=== PATIENT | female | born 1995 | race Caucasian/White ===

== ENCOUNTER → 2017-10-30 | Outpatient (CLI) | payer MEDICAID ==
[~2017-10-30] MED LIST: ACHD5005 PO; FERR-84 PO; IBUP-844 PO; VALA500T4 PO
--- NOTE | 2017-10-30 13:21 | Diagnostic Imaging Report ---
INDICATION: Assessment for position and weight. Outside care performed. Records not available. TECHNIQUE: Multiple, limited real-time grayscale images were obtained over the gravid uterus. COMPARISON: None FINDINGS: There is presence of a single viable intrauterine currently in cephalic presentation. Amniotic fluid currently within normal limits at 10.7 cm. Placenta along the fundal aspect without previa. cardiac activity at 127 beats per minute. Biometrical measurements are as follows: Biparietal 8.5 cm, age 34 weeks 3 days. Head circumference 31.0 cm, age 34 weeks 5 days. Abdominal circumference 30.1 cm, age 34 weeks 5 days. Femur length 6.7 cm, age 34 weeks 4 days. Sonographic estimate age: 34 weeks 5 days. Sonographic estimated date of delivery: 12/06/17. Estimated Weight: 2457 gm (+/- 359 gm). LMP percentile: 56%. heart rate: 124 beats per minute. number: 1 of 1. anatomical assessment not performed. IMPRESSION: 1. Single viable intrauterine currently in cephalic presentation. Sonographic estimated age 34 weeks 5 days for an estimated date of delivery 12/06/2017. Dictated by: Dictated on workstation # [id number]
== END ==
LOC: RAD 11:57
PROVIDERS: ATTEND Family Medicine
DX: Z34.93 Encounter for supervision of normal pregnancy, unspecified, third trimester (principal); Z3A.34 34 weeks gestation of pregnancy
CPT/HCPCS: 76805

== ENCOUNTER 2017-11-04 03:28 | Inpatient (IN) | payer MEDICAID ==
[2017-11-04] VITALS (19 sets, daily range): BP systolic 91–132; BP diastolic 50–90
[~2017-11-04] VITALS: Ht 142.2 cm; Wt 62.6 kg
[~2017-11-04 03:28] MED LIST changes: -ACHD5005 PO; -FERR-84 PO; -IBUP-844 PO
[2017-11-04] MEDS ORDERED: D5 LR IV SOLUTION 1,000 ML IV SCH ×2 (04:43→12:48)
[2017-11-04] MEDS ORDERED: BUTORPHANOL INJ 2 MG/ML (STADOL) VIAL IV PRN (04:45)
[2017-11-04] MEDS ORDERED: MINERAL OIL CONCENTRATE 99.9% 15 ML UDC TOP PRN (04:45)
[2017-11-04] MEDS ORDERED: ONDANSETRON 4 MG/2 ML (SDV) Z0FRAN IVP PRN (04:45)
[2017-11-04 04:49] LABS: BASOPHILS % (AUTO) 0 % (0-10); EOSINOPHILS # (AUTO) 0.1 10^3/uL (0.0-0.3); EOSINOPHILS % (AUTO) 1 % (0-10); HEMATOCRIT 33 % (35-52); HEMOGLOBIN 10.8 G/DL (11.5-16.0); LYMPHOCYTES # (AUTO) 2.2 X 10^3 (1.0-4.0); LYMPHOCYTES % (AUTO) 24 % (12-44); MEAN CORPUSCULAR HEMOGLOBIN 29 PG (25-34); MEAN CORPUSCULAR HGB CONC 33 G/DL (32-36); MEAN CORPUSCULAR VOLUME 88 FL (80-99); MONOCYTES % (AUTO) 11 % (0-12); NEUTROPHILS % (AUTO) 64 % (42-75); PLATELET COUNT 381 10^3/uL (130-400); RED BLOOD COUNT 3.69 10^6/uL (4.35-5.85); RED CELL DISTRIBUTION WIDTH 13.1 % (10.0-14.5); WHITE BLOOD COUNT 9.3 10^3/uL (4.3-11.0)
--- OUTSIDE RECORDS SUMMARY | 2017-11-04 05:43 | XMS REPORT | Continuity of Care Document ---
Author Author [facility] Organization [facility] Address [facility] [address] [place] [address] Phone Unavailable Support Name Relationship Address Phone MONICA BAUTISTA DO Caregiver [address] [place], [place] [address] CARSONJENNIFER Next Of Kin [address] [place], [place] [address] Insurance Providers Payer Name Policy Number Subscriber Name Relationship Self Pay Insurance Esteban Carson 18 Self / Same As Patient Advance Directives Directive Response Recorded Date/Time Advance Directives No 05/23/16 6:38pm Living Will No 05/23/16 6:38pm Health Care Proxy No 08/26/16 1:42pm Power of Informatic[employer] Developer for Health Care No 05/23/16 6:38pm Organ, Tissue, or Eye Donor No 05/23/16 6:38pm Do you have a signed organ donor card? No 05/23/16 6:38pm Chief Complaint and Reason for Visit Chief Complaint LEG PAIN Reason for Visit [id number] Problems Active Problems Medical Problem Onset Date Status Leg pain, left Unknown Acute Urticaria Unknown Acute Medications Current Home Medications Medication Dose Units Route Directions Days/Qty Instructions Start Date Prednisone 10 Mg 10 Mg Oral Twice A Day 4 05/23/16 Famotidine 40 Mg 40 Mg Oral Daily 5 05/23/16 Social History Social History Problem Response Recorded Date/Time Smoking Status Never smoker 05/23/2016 7:24pm Query Response Start Date Stop Date Smoking Status Never smoker Hospital Discharge Instructions No hospital discharge instructions. Plan of Care Discharge Date 08/26/16 4:32pm Condition at Discharge Stable Instructions/Education Provided Muscle Strain (ED) Prescriptions See Medication Section Referrals SUSAN ANGUIANO - Functional Status Query Response Date Recorded [place] Coma Scale Total 15 August 26, 2016 1:41pm Patient Behavior Restless Cooperative August 26, 2016 1:41pm Allergies, Adverse Reactions, Alerts No known allergies. Immunizations Name Given Type Hx Diphtheria, Pertussis, Tetanus Vaccination Up To Date Historical Hx Influenza Vaccination No Historical Hx Pneumococcal Vaccination No Historical Hx Tetanus, Diphtheria Vaccination Yes Historical Hx Tetanus Toxoid Vaccination Y within 10 years Historical Vital Signs Acute Vital Signs Vital Response Date/Time Temperature (Fahrenheit) 98.7 degrees F (97.6 - 99.5) 08/26/2016 1:41pm Temperature Source Temporal Artery 08/26/2016 1:41pm Pulse Rate (adult) 84 bpm (60 - 90) 08/26/2016 4:00pm Respiratory Rate 20 bpm (12 - 24) 08/26/2016 4:00pm Blood Pressure 98/65 mm Hg 08/26/2016 4:00pm O2 Sat by Pulse Oximetry 95 % (90 - 100) 08/26/2016 4:00pm Oxygen Delivery Method 08/26/2016 4:00pm Pain Location Body Site Modifier 08/26/2016 3:03pm Pain Description 08/26/2016 3:03pm Height 4 ft 8 in Weight 123 lb Body Mass Index 27.0 kg/m^2 Results Laboratory Results Test Name Result Units Flags Reference Collection Date/Time Result Date/ Time Comments Urine Color YELLOW YELLOW 08/26/2016 3:04pm 08/26/2016 3:45pm Urine Appearance CLEAR CLEAR 08/26/2016 3:04pm 08/26/2016 3:45pm Urine Glucose (UA) NEGATIVE mg/dL NEGATIVE 08/26/2016 3:04pm 2016 3:45pm Urine Bilirubin NEGATIVE NEGATIVE 08/26/2016 3:04pm 08/26/2016 3: 45pm Urine Ketones 1+ (15 mg/dl) mg/dL H NEGATIVE 08/26/2016 3:04pm 2016 3:45pm Urine Specific [place] >=1.030 H 1.010-1.025 08/26/2016 3:04pm 2016 3:45pm Urine Occult Blood NEGATIVE NEGATIVE 08/26/2016 3:04pm 08/26/2016 3: 45pm Urine pH 5.5 5.0-8.0 08/26/2016 3:04pm 08/26/2016 3:45pm Urine Protein NEGATIVE mg/dL NEGATIVE 08/26/2016 3:04pm 08/26/2016 3: 45pm Urine Urobilinogen 0.2 mg/dL E.U./dL 0.2-1.0 08/26/2016 3:04pm 2016 3:45pm Urine Nitrate NEGATIVE NEGATIVE 08/26/2016 3:04pm 08/26/2016 3:45pm Urine Leukocyte Esterase NEGATIVE NEGATIVE 08/26/2016 3:04pm 2016 3:45pm Urine RBC NEGATIVE /hpf 0 08/26/2016 3:04pm 08/26/2016 3:48pm Urine WBC NEGATIVE /hpf 0-4 08/26/2016 3:04pm 08/26/2016 3:48pm Urine Squamous Epithelial Cells 5-10 /hpf H 0-1 08/26/2016 3:04pm 2016 3:48pm Urine Bacteria TRACE H NEGATIVE 08/26/2016 3:04pm 08/26/2016 3:48pm Urine Mucus FEW H NEGATIVE 08/26/2016 3:04pm 08/26/2016 3:48pm Urine HCG, Qualitative NEGATIVE NEG 08/26/2016 3:04pm 08/26/2016 3: 45pm Procedures No known history of procedures. Encounters Encounter Location Arrival/Admit Date Discharge/Depart Date Attending Provider Departed [facility] 08/26/16 1:41pm 08/26/16 4:32pm MONICA BAUTISTA DO Recent Diagnosis
--- OUTSIDE RECORDS SUMMARY | 2017-11-04 05:43 | XMS REPORT ---
Author Author JACQUELINE HAND Organization [facility] Address [address] [address] Care Team Providers Care Rand Butter Name Role Phone JACQUELINE HAND Unavailable PROBLEMS Type Condition ICD9-CM Code QPP17-GD Code Onset Dates Condition Status SNOMED Code Problem Fever, unspecified fever cause R50.9 Active [id number] ALLERGIES Substance Reaction Event Type Date Status N.K.D.A. Unknown Non Drug Allergy Jul, Unknown SOCIAL HISTORY No smoking Hx information available PLAN OF CARE Activity Details Follow Up prn Reason: VITAL SIGNS Height 58.5 in 2016-08-12 Weight 123.7 lbs 2016-08-12 Temperature 97.9 degrees Fahrenheit 2016-08-12 Heart Rate 85 bpm 2016-08-12 Respiratory Rate 14 2016-08-12 BMI 25.41 kg/m2 2016-08-12 Blood pressure systolic 110 mmHg 2016-08-12 Blood pressure diastolic 70 mmHg 2016-08-12 MEDICATIONS Medication Instructions Dosage Frequency Start Date End Date Duration Status 1 30-0.975-200 MG as directed Jun, Active Amoxicillin 500 MG Orally every 12 hrs 1 capsule 12h Jul, Aug, 10 day(s) Active RESULTS Name Result Date Reference Range INFLUENZA A & B (IN HOUSE) 2016-08-12 INFLUENZA A Neg INFLUENZA B Neg Control positive Lot # [id number] Exp date 12/05/2018 PROCEDURES Procedure Date Ordered Related Diagnosis Body Site INFLUENZA ASSAY W/OPTIC Aug 12, 2016 Office Visit, Est Pt., Level 3 Aug 12, 2016 IMMUNIZATIONS No Known Immunizations
--- OUTSIDE RECORDS SUMMARY | 2017-11-04 05:43 | XMS REPORT ---
Author Author REYNA MCCARTNEY [facility] Address [address] [address] Care Team Providers Care Channel Opener Name Role Phone REYNA MCCARTNEY Unavailable PROBLEMS Type Condition ICD9-CM Code [id number] Code Onset Dates Condition Status SNOMED Code Problem Fever, unspecified fever cause R50.9 Active [id number] ALLERGIES Unknown Allergies SOCIAL HISTORY No smoking Hx information available PLAN OF CARE VITAL SIGNS MEDICATIONS Unknown Medications RESULTS No Results PROCEDURES No Known procedures IMMUNIZATIONS No Known Immunizations
--- OUTSIDE RECORDS SUMMARY | 2017-11-04 05:43 | XMS REPORT ---
Author Author REYNA MCCARTNEY Organization [facility] Address [address] [address] Care Team Providers Care Iso Coordinator Name Role Phone REYNA MCCARTNEY Unavailable PROBLEMS Type Condition ICD9-CM Code [id number] Code Onset Dates Condition Status SNOMED Code Problem Fever, unspecified fever cause R50.9 Active [id number] ALLERGIES Substance Reaction Event Type Date Status N.K.D.A. Unknown Non Drug Allergy Jun, Unknown SOCIAL HISTORY No smoking Hx information available PLAN OF CARE Activity Details Follow Up prn Reason: VITAL SIGNS Height 58.5 in 2016-06-26 Weight 130.6 lbs 2016-06-26 Temperature 102.4 degrees Fahrenheit 2016-06-26 Heart Rate 84 bpm 2016-06-26 Respiratory Rate 16 2016-06-26 BMI 26.83 kg/m2 2016-06-26 Blood pressure systolic 120 mmHg 2016-06-26 Blood pressure diastolic 74 mmHg 2016-06-26 MEDICATIONS Medication Instructions Dosage Frequency Start Date End Date Duration Status 1 30-0.975-200 MG as directed Jun, Active Saline Nasal [place] 0.65 % as directed Jun, Active Augmentin 875-125 MG Orally every 12 hrs 1 tablet 12h Jun,Jun 10 day(s) Active RESULTS Name Result Date Reference Range INFLUENZA A & B (IN HOUSE) 2016-06-26 INFLUENZA A neg INFLUENZA B neg Control + Lot # [id number] Exp date 12/05/18 STREP A (IN HOUSE) 2016-06-26 STREP A neg Control + Lot # [id number] Exp date 06/20/17 PROCEDURES Procedure Date Ordered Related Diagnosis Body Site STREP A ASSAY W/OPTIC Jun 26, 2016 INFLUENZA ASSAY W/OPTIC Jun 26, 2016 Office Visit, New Pt., Level 3 Jun 26, 2016 IMMUNIZATIONS No Known Immunizations
--- OUTSIDE RECORDS SUMMARY | 2017-11-04 05:43 | XMS REPORT ---
Author Author JACQUELINE HAND Organization [facility] Address [address] [address] Care Team Providers Care Tanbark Laborer Name Role Phone JACQUELINE HAND Unavailable PROBLEMS Type Condition ICD9-CM Code CTU19-QH Code Onset Dates Condition Status SNOMED Code Problem Fever, unspecified fever cause R50.9 Active [id number] ALLERGIES No Information SOCIAL HISTORY Never Assessed PLAN OF CARE VITAL SIGNS MEDICATIONS Medication Instructions Dosage Frequency Start Date End Date Duration Status Azithromycin 250 MG Orally Once a day 2 tablets on the first day, then 1 tablet daily for days 2-5 24h Sep, Sep, 0 days Active RESULTS No Results PROCEDURES No Known procedures IMMUNIZATIONS No Known Immunizations MEDICAL (GENERAL) HISTORY Type Description Date Hospitalization History urinary tract infection
[2017-11-04] MEDS ORDERED: CATHETER FLUSH 10 ML SYR IV SCH (06:00)
[2017-11-04] MEDS: LACTATED RINGERS 1,000 ML IV SCH ×2 (08:20→11:55)
[2017-11-04] MEDS ORDERED: SUFENTA 0.6MCG/ML BUPIVA 0.125 100 ML ONE (08:26)
[2017-11-04 09:11] LABS: AMPHETAMINE SCREEN, URINE NEGATIVE (NEGATIVE); BARBITURATE SCREEN URINE NEGATIVE (NEGATIVE); BENZODIAZEPINES SCREEN URINE NEGATIVE (NEGATIVE); CANNABINOID SCREEN, URINE POSITIVE (NEGATIVE); COCAINE SCREEN URINE NEGATIVE (NEGATIVE); METHADONE STAT NEGATIVE (NEGATIVE); METHAMPHETAMINE SCREEN URINE S NEGATIVE (NEGATIVE); OPIATE SCREEN URINE NEGATIVE (NEGATIVE); OXYCODONE STAT NEGATIVE (NEGATIVE); PROPOXYPHENE STAT NEGATIVE (NEGATIVE); TRICYCLIC ANTIDEPRESSANTS SCRE NEGATIVE (NEGATIVE)
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
[2017-11-04] MEDS ORDERED: METOCLOPRAMIDE INJ 10 MG/2 ML (REGLAN) IV PRN (10:00)
[2017-11-04] MEDS ORDERED: ONDANSETRON 4 MG/2 ML (SDV) Z0FRAN IV PRN (10:00)
[2017-11-04] MEDS ORDERED: diphenhydrAMINE 50 MG/ML INJ (BENADRYL) IV PRN (10:00)
[2017-11-04] MEDS ORDERED: EPIDURAL (SUFENTA 0.6MCG/ML BUPIVA 0.125%) 100 ML BAG EPI SCH (10:00)
[2017-11-04] MEDS ORDERED: NALOXONE 0.4 MG/ML 1 ML (NARCAN) VIAL IV PRN ×2 (10:00)
[2017-11-04] MEDS ORDERED: raNItidine 50 MG/2 ML INJ (ZANTAC) ONE (11:49)
[2017-11-04] MEDS ORDERED: ceFAZolin 2 GM IV Premixed 50 ML ONE (11:49)
[2017-11-04] MEDS ORDERED: CITRIC ACID/SOB CIT (BICITRA) 30 ML UDC ONE (11:49)
[2017-11-04] MEDS ORDERED: AZITHROMYCIN 500 MG (ZITHROMAX) VIAL ONE (11:52)
[2017-11-04] MEDS ORDERED: NS (IVPB) 0 ML ONE (11:52)
[2017-11-04] MEDS ORDERED: ceFAZolin 1,000 MG (ANCEF) VIAL ONE (11:52)
[2017-11-04] MEDS ORDERED: NS (IVPB) 100 ML ONE (11:53)
[2017-11-04] MEDS ORDERED: NS (IVPB) 250 ML ONE (11:55)
[2017-11-04] MEDS ORDERED: LIDOCAINE PF 2% 5 ML (XYLOCAINE) VIAL ONE (11:56)
[2017-11-04] MEDS ORDERED: KETAMINE HCL 100 MG/ML 5 ML VIAL ONE (11:57)
[2017-11-04] MEDS ORDERED: BUPIVACAINE 0.25% 30 ML (SENSORCAINE) VIAL ONE (11:59)
[2017-11-04] MEDS ORDERED: BUPIVACAINE 0.5% 30 ML (SENSORCAINE) VIAL ONE (11:59)
[2017-11-04] MEDS ORDERED: AZITHROMYCIN INJECTION 500 MG in NS (IVPB) 250 ML IV NR (12:00)
[2017-11-04] MEDS ORDERED: ceFAZolin INJECTION 1,000 MG in NS (IVPB) 100 ML IV NR (12:00)
[2017-11-04] MEDS ORDERED: fentaNYL INJECTION 100 MCG/2 ML AMP ONE (12:05)
[2017-11-04] MEDS ORDERED: ONDANSETRON 4 MG/2 ML (SDV) Z0FRAN ONE (12:24)
[2017-11-04] MEDS ORDERED: OXYTOCIN/NORMAL SALINE 500 ML IV SCH (12:48)
--- NOTE | 2017-11-04 12:55 | Cesarean Section Operative ---
Procedure Procedure Note Pre-operative Diagnosis: Unique Wallace is a 22 /Para 5 / 0,Gestational Age 37 5/7 weeks with intolerance to labor, decelerations Post-operative Diagnosis: same Procedure: Primary low transverse section Physician: JOHN SAINI Rv Servicer: Elke Bob Estimated blood loss: 500 mL Disposition: mother in RR and baby in NBN Findings: Viable female infant, Apgars 7/9, weight 5#7oz, intact placenta, 3vc, normal appearing uterus, tubes, and ovaries. Indications:Unique Wallace is a 22 /Para 5 / 0,Gestational Age 37 5/7 weeks with intolerance to labor, decelerations I was asked to consult by Dr. Elke Bob, due to decelerations. This is a 22 year old at 37 5/7 weeks with limited care in [place]. She had moved here to be with FOBs family and had [address] [place]. Had ROM and arrived here at 0300. Was in spontaneous labor and approximately 4 cm dilated, but having deep variable late decelerations. The strip had improved, but Dr. Bob had asked me to consult due to decelerations. They had resolved but while I was in the room had a variable to 60 for over 2 minutes with slow recovery, so she was taken to the operating room for operative delivery. Procedure Details: The patient was seen in pre-op and the procedure was discussed with the patient in full, including the risks, benefits, and alternatives. All questions were answered. The patient was taken to the operating room and a time out was performed, verifying patient and procedure. After spinal anesthesia was placed by our anesthesia colleagues, the patient was placed in the dorsal supine with leftward tilt for uterine displacement.~ Her abdomen was then prepped and draped in the typical sterile fashion. A Pfannenstiel skin incision was made using a scalpel and carried down through the underlying fascia. The fascia was incised in the midline and tented up using Natacha clamps. On both the inferior and superior fascia side the rectus muscle was dissected off bluntly and sharply using Davies scissors. The peritoneum was identified and entered bluntly in the midline. This was then stretched laterally using manual strength. After entering the abdominal cavity and confirming lack of intraperitoneal adhesions, a large Clark retractor was placed and the lower uterine segment was visualized. A scalpel was utilized to make a low transverse uterine incision. The infant's head was grasped and brought to the level of the incision. It was in the OP presentation, wedge in the pelvis with a caput. There was a nuchal cord that was delivered through. Fundal pressure was applied and was delivered without difficulty. Mouth and nares were suctioned with bulb suction. After the umbilical cord was clamped and cut, the was handed off to the pediatric staff. A sample of cord blood was then obtained. Cord gases were sent. pH 7.24. The placenta was delivered intact via uterine massage. The uterus was cleared of all clots and debris. The uterine incision was closed using 0 Vicryl in a running locked fashion. A second imbricated layer was placed using 0 Vicryl in a running fashion as well. The bilateral tubes and ovaries appeared normal. The abdominal gutters were cleared of all clots and debris. A final check of the uterine incision showed it to be hemostatic. Intercede was placed. The peritoneum was closed using 3-0 Vicryl in a running fashion. The fascia was closed with 0 Vicryl in a running fashion. The subcutaneous space was hemostatic , and irrigated. The subcutaneous space was closed with 3-0 Vicryl in several single interrupted stitches. The skin was then closed using 4-0 Monocryl in a running subcuticular fashion. The skin edges were reapproximated together and were hemostatic. A pressure dressing was applied. All sponge, lap and needle counts were correct at the end of the procedure per nursing. Vitals - Labs Vital Signs - I&O Vital Signs Date Time Temp Pulse Resp B/P (MAP) Pulse Ox O2 Delivery O2 Flow Rate FiO2 11/04/17 10:10 66 20 94/53 (67) 100 Non Rebreather 15.00 11/04/17 09:55 59 20 94/59 (71) 100 Non Rebreather 15.00 11/04/17 09:50 66 20 91/52 (65) 100 Non Rebreather 15.00 11/04/17 09:45 62 20 109/60 (76) 100 Non Rebreather 15.00 11/04/17 09:40 69 20 132/72 (92) 100 Non Rebreather 15.00 11/04/17 09:35 70 20 118/78 (91) 100 Non Rebreather 15.00 11/04/17 09:30 69 20 119/67 (84) 99 Non Rebreather 15.00 11/04/17 03:44 98.5 75 18 107/62 (77) Labs Laboratory Tests 11/04/17 04:20: White Blood Count 9.3, Red Blood Count 3.69L, Hemoglobin 10.8L, Hematocrit 33L, Mean Corpuscular Volume 88, Mean Corpuscular Hemoglobin 29, Mean Corpuscular Hemoglobin Concent 33, Red Cell Distribution Width 13.1, Platelet Count 381, Mean Platelet Volume 10.0, Neutrophils (%) (Auto) 64, Lymphocytes (%) (Auto) 24 , Monocytes (%) (Auto) 11, Eosinophils (%) (Auto) 1, Basophils (%) (Auto) 0, Neutrophils # (Auto) 6.0, Lymphocytes # (Auto) 2.2, Monocytes # (Auto) 1.0, Eosinophils # (Auto) 0.1, Basophils # (Auto) 0.0 11/04/17 08:45: Urine Opiates Screen NEGATIVE, Urine Oxycodone Screen NEGATIVE, Urine Methadone Screen NEGATIVE, Urine Propoxyphene Screen NEGATIVE, Urine Barbiturates Screen NEGATIVE, Ur Tricyclic Antidepressants Screen NEGATIVE, Urine Phencyclidine Screen NEGATIVE, Urine Amphetamines Screen NEGATIVE, Urine Methamphetamines Screen NEGATIVE, Urine Benzodiazepines Screen NEGATIVE, Urine Cocaine Screen NEGATIVE, Urine Cannabinoids Screen POSITIVEJOHN BECKWITH DO Nov 04, 2017 12:55
[2017-11-04] MEDS ORDERED: TETANUS,DIPTH,PERTUSS P/F (BOOSTRIX) 0.5 ML VIAL IM SCH (13:00)
[2017-11-04] MEDS ORDERED: HYDROmorphone 2 MG/ML VIAL (DILAUDID) IVP PRN (13:00)
[2017-11-04] MEDS ORDERED: MEASLES,MUMPS,RUBELLA 1 EA INJ SC SCH (13:00)
[2017-11-04] MEDS ORDERED: ACHD5005 PO (13:15)
[2017-11-04] MEDS ORDERED: IBUP-844 PO (13:15)
[2017-11-04] MEDS ORDERED: LACTATED RINGERS 1,000 ML IV PRN ×2 (14:24)
[2017-11-04] MEDS ORDERED: FAMOTIDINE 20MG/2ML IV (PEPCID) IV ONE (14:30)
[2017-11-04] MEDS ORDERED: CATHETER FLUSH 10 ML SYR IV PRN (14:30)
[2017-11-04] MEDS ORDERED: CITRIC ACID/SOB CIT (BICITRA) 30 ML UDC PO ONE (14:30)
[2017-11-04] MEDS ORDERED: raNItidine 50 MG/2 ML INJ (ZANTAC) IV ONE (14:30)
[2017-11-04] MEDS ORDERED: METOCLOPRAMIDE INJ 10 MG/2 ML (REGLAN) IV ONE (14:30)
[2017-11-04] MEDS: CATHETER FLUSH 10 ML SYR IV SCH (14:41)
[2017-11-04] MEDS ORDERED: diphenhydrAMINE 50 MG/ML INJ (BENADRYL) IVP NR (14:45)
[2017-11-04] MEDS: KETOROLAC 30 MG/ML VIAL IVP SCH ×2 (15:42→22:00)
[2017-11-04] MEDS: HYDROcodone/APAP 5 MG/325 MG (LORTAB) TAB PO PRN (20:18)
[2017-11-04] MEDS: DOCUSATE SODIUM 100 MG (COLACE) CAP PO SCH (20:55)
--- NOTE | 2017-11-04 21:28 | Labor Progress Note ---
Labor Progress Note Labor Progress Note Date Seen by Provider: Nov 04, 2017 Time Seen by Provider: 12:00 Subjective: Pt comfortable with epidural. Objective: SVE 4-5/100/-1, OP heart tones: severe variable decelerations in FHR as low as 50 bpm with slow return to baseline; no palpable cord, minimal change with elevation of presenting part Tocometer: irregular and mild Assessment/Plan: Discussed with patient that fetus is not tolerating contractions, and given that she is remote from delivery with decelerations becoming more severe and prolonged, recommend surgical delivery. Risks and benefits reviewed, including but not limited to pain, infection, blood loss, damage to other internal structures. Patient is agreeable to delivery by primary section. Dr. Anguiano called, report on pt and FHR given, is currently en route to facility with ETA <5 minutes. 1 gram Ancef, 500 mg Zithromax, prep patient for OR and consent for surgery. Vitals - Labs Vital Signs - I&O Vital Signs Date Time Temp Pulse Resp B/P (MAP) Pulse Ox O2 Delivery O2 Flow Rate FiO2 11/04/17 18:07 97.7 59 20 123/84 (97) 100 Room Air 11/04/17 15:40 98.1 68 20 130/90 (103) 100 11/04/17 14:30 97.8 66 20 116/61 (79) 100 Room Air 11/04/17 14:14 Room Air 11/04/17 12:00 64 20 108/68 (81) 100 Non Rebreather 15.00 11/04/17 11:45 65 20 110/57 (74) 100 Non Rebreather 15.00 11/04/17 11:30 63 20 117/65 (82) 100 Non Rebreather 15.00 11/04/17 11:15 55 20 92/50 (64) 99 Non Rebreather 15.00 11/04/17 11:00 58 20 96/51 (66) 100 Non Rebreather 15.00 11/04/17 10:45 59 20 96/55 (69) 95 Non Rebreather 15.00 11/04/17 10:30 97.7 65 20 92/51 (65) 97 Non Rebreather 15.00 11/04/17 10:10 66 20 94/53 (67) 100 Non Rebreather 15.00 11/04/17 09:55 59 20 94/59 (71) 100 Non Rebreather 15.00 11/04/17 09:50 66 20 91/52 (65) 100 Non Rebreather 15.00 11/04/17 09:45 62 20 109/60 (76) 100 Non Rebreather 15.00 11/04/17 09:40 69 20 132/72 (92) 100 Non Rebreather 15.00 11/04/17 09:35 70 20 118/78 (91) 100 Non Rebreather 15.00 11/04/17 09:30 69 20 119/67 (84) 99 Non Rebreather 15.00 11/04/17 03:44 98.5 75 18 107/62 (77) Labs Laboratory Tests 11/04/17 04:20: White Blood Count 9.3, Red Blood Count 3.69L, Hemoglobin 10.8L, Hematocrit 33L, Mean Corpuscular Volume 88, Mean Corpuscular Hemoglobin 29, Mean Corpuscular Hemoglobin Concent 33, Red Cell Distribution Width 13.1, Platelet Count 381, Mean Platelet Volume 10.0, Neutrophils (%) (Auto) 64, Lymphocytes (%) (Auto) 24 , Monocytes (%) (Auto) 11, Eosinophils (%) (Auto) 1, Basophils (%) (Auto) 0, Neutrophils # (Auto) 6.0, Lymphocytes # (Auto) 2.2, Monocytes # (Auto) 1.0, Eosinophils # (Auto) 0.1, Basophils # (Auto) 0.0 11/04/17 08:45: Urine Opiates Screen NEGATIVE, Urine Oxycodone Screen NEGATIVE, Urine Methadone Screen NEGATIVE, Urine Propoxyphene Screen NEGATIVE, Urine Barbiturates Screen NEGATIVE, Ur Tricyclic Antidepressants Screen NEGATIVE, Urine Phencyclidine Screen NEGATIVE, Urine Amphetamines Screen NEGATIVE, Urine Methamphetamines Screen NEGATIVE, Urine Benzodiazepines Screen NEGATIVE, Urine Cocaine Screen NEGATIVE, Urine Cannabinoids Screen POSITIVETANGELA DUNHAM DO Nov 04, 2017 21:28
[2017-11-05 02:10] VITALS: BP 120/75
[2017-11-05] MEDS: KETOROLAC 30 MG/ML VIAL IVP SCH ×2 (04:39→09:27)
[2017-11-05] MEDS: HYDROcodone/APAP 5 MG/325 MG (LORTAB) TAB PO PRN ×3 (04:39→16:57)
[2017-11-05] MEDS: CATHETER FLUSH 10 ML SYR IV SCH ×2 (04:39→09:28)
[2017-11-05 05:36] LABS: BASOPHILS % (AUTO) 0 % (0-10); EOSINOPHILS # (AUTO) 0.1 10^3/uL (0.0-0.3); EOSINOPHILS % (AUTO) 1 % (0-10); HEMATOCRIT 29 % (35-52); HEMOGLOBIN 9.4 G/DL (11.5-16.0); LYMPHOCYTES # (AUTO) 2.2 X 10^3 (1.0-4.0); LYMPHOCYTES % (AUTO) 24 % (12-44); MEAN CORPUSCULAR HEMOGLOBIN 29 PG (25-34); MEAN CORPUSCULAR HGB CONC 33 G/DL (32-36); MEAN CORPUSCULAR VOLUME 89 FL (80-99); MEAN PLATELET VOLUME 9.9 FL (7.4-10.4); MONOCYTES # (AUTO) 0.9 X 10^3 (0.0-1.0); MONOCYTES % (AUTO) 10 % (0-12); NEUTROPHILS # (AUTO) 5.7 X 10^3 (1.8-7.8); NEUTROPHILS % (AUTO) 64 % (42-75); PLATELET COUNT 328 10^3/uL (130-400); RED BLOOD COUNT 3.25 10^6/uL (4.35-5.85); RED CELL DISTRIBUTION WIDTH 12.9 % (10.0-14.5); WHITE BLOOD COUNT 8.9 10^3/uL (4.3-11.0)
[2017-11-05 05:47] VITALS: BP 98/64
--- NOTE | 2017-11-05 08:21 | Anesthesia-Regional Post-Op ---
Regional Patient Condition Mental Status: Alert, Oriented x3 Circulation: Same as Pre-Op Headache: Absent Sensation: Full Recovery Motor Block: Absent Post Op Complications Complications None Follow Up Care/Instructions Patient Instructions None needed. Anesthesia/Patient Condition Patient is doing well, no complaints, stable vital signs, no apparent adverse anesthesia problems. No complications reported per nursing. D/C home per [facility] Criteria: Yes MICKI MALIK CRNA Nov 05, 2017 08:21
[2017-11-05 09:00] VITALS: BP 105/68
[2017-11-05] MEDS: DOCUSATE SODIUM 100 MG (COLACE) CAP PO SCH ×2 (09:29→20:52)
[2017-11-05 12:45] VITALS: BP 104/64
--- NOTE | 2017-11-05 12:46 | Postpartum Progress Note ---
Post Op Post-operative Day #1 S/P pltcs INTOLERANCE. Some questions of guardianship. 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 Appreciate input. Subjective: Patient is without complaints. Ambulating, voiding after bland removed. Tolerating a regular diet without nausea or vomiting. Normal lochia. Pain is well controlled with oral pain medications. Passing flatus. States she had one episode of emesis due to hydrocodone though emesis was 3 hours after hydrocodone. Will continue pain medications as ordered and given zofran. If continues with stomach upset then may consider changing to oxycodone. However, pain is controlled with meds as ordered. Objective: Laboratory Tests Test 11/05/17 05:05 Range/Units White Blood Count 8.9 4.3-11.0 10^3/uL Red Blood Count 3.25 L 4.35-5.85 10^6/uL Hemoglobin 9.4 L 11.5-16.0 G/DL Hematocrit 29 L 35-52 % Mean Corpuscular Volume 89 80-99 FL Mean Corpuscular Hemoglobin 29 25-34 PG Mean Corpuscular Hemoglobin Concent 33 32-36 G/DL Red Cell Distribution Width 12.9 10.0-14.5 % Platelet Count 328 130-400 10^3/uL Mean Platelet Volume 9.9 7.4-10.4 FL Neutrophils (%) (Auto) 64 42-75 % Lymphocytes (%) (Auto) 24 12-44 % Monocytes (%) (Auto) 10 0-12 % Eosinophils (%) (Auto) 1 0-10 % Basophils (%) (Auto) 0 0-10 % Neutrophils # (Auto) 5.7 1.8-7.8 X 10^3 Lymphocytes # (Auto) 2.2 1.0-4.0 X 10^3 Monocytes # (Auto) 0.9 0.0-1.0 X 10^3 Eosinophils # (Auto) 0.1 0.0-0.3 10^3/uL Basophils # (Auto) 0.0 0.0-0.1 10^3/uL 11/05/17 11/05/17 11/05/17 02:10 05:47 09:00 Temp 98.2 97.8 98.8 Pulse 61 67 71 Resp 18 14 18 B/P (MAP) 120/75 (90) 98/64 (75) 105/68 (80) Pulse Ox 98 96 97 O2 Delivery Room Air Room Air Room Air 11/05/17 00:00 Intake Total 2530 ml Output Total 1800 ml Balance 730 ml Physical Exam: General - Alert and oriented, no apparent distress Abdomen - Soft, appropriately tender to palpation, non-distended, fundus firm at umbilicus Incision - clean, dry and intact; no erythema or induration, no drainage Extremities - no edema, negative Adeline's bilaterally Assessment: 1. post-operative day # 1, status post PLTCS. Recovering well, hemodynamically stable 2. Acute blood loss anemia Plan: Routine post-operative care. Encourage breast feeding. Encourage ambulation. VTE prophylaxis: SCDs. Ferrous sulfate supplementation. See above regarding pain medication Plan for discharge Friday Vitals - Labs Vital Signs - I&O Vital Signs Date Time Temp Pulse Resp B/P (MAP) Pulse Ox O2 Delivery O2 Flow Rate FiO2 11/05/17 09:00 98.8 71 18 105/68 (80) 97 Room Air 11/05/17 05:47 97.8 67 14 98/64 (75) 96 Room Air 11/05/17 02:10 98.2 61 18 120/75 (90) 98 Room Air 11/04/17 22:10 98.7 68 16 104/62 (76) 97 Room Air 11/04/17 18:07 97.7 59 20 123/84 (97) 100 Room Air 11/04/17 15:40 98.1 68 20 130/90 (103) 100 11/04/17 14:30 97.8 66 20 116/61 (79) 100 Room Air 11/04/17 14:14 Room Air I & O 11/05/17 07:00 Intake Total 4530 ml Output Total 1800 ml Balance 2730 ml Labs Laboratory Tests 11/05/17 05:05: White Blood Count 8.9, Red Blood Count 3.25L, Hemoglobin 9.4L, Hematocrit 29L, Mean Corpuscular Volume 89, Mean Corpuscular Hemoglobin 29, Mean Corpuscular Hemoglobin Concent 33, Red Cell Distribution Width 12.9, Platelet Count 328, Mean Platelet Volume 9.9, Neutrophils (%) (Auto) 64, Lymphocytes (%) (Auto) 24, Monocytes (%) (Auto) 10, Eosinophils (%) (Auto) 1, Basophils (%) (Auto) 0, Neutrophils # (Auto) 5.7, Lymphocytes # (Auto) 2.2, Monocytes # (Auto) 0.9, Eosinophils # (Auto) 0.1, Basophils # (Auto) 0.0 JOHN SAINI DO Nov 05, 2017 12:46
[2017-11-05] MEDS ORDERED: ONDANSETRON 8 MG (ZOFRAN) ORAL DISSOLVE TAB ONE (12:52)
[2017-11-05] MEDS ORDERED: ONDANSETRON 8 MG (ZOFRAN) ORAL DISSOLVE TAB PO PRN (13:00)
[2017-11-05] MEDS: IBUPROFEN 600 MG (MOTRIN) TAB PO SCH ×2 (15:09→20:52)
[2017-11-05 16:50] VITALS: BP 116/75
[2017-11-05 20:50] VITALS: BP 103/69
[2017-11-06 03:25] VITALS: BP 102/73
[2017-11-06] MEDS: IBUPROFEN 600 MG (MOTRIN) TAB PO SCH ×4 (03:29→21:28)
[2017-11-06 08:01] VITALS: BP 105/71
[2017-11-06] MEDS: DOCUSATE SODIUM 100 MG (COLACE) CAP PO SCH ×2 (08:40→21:28)
--- NOTE | 2017-11-06 08:55 | Postpartum Progress Note ---
Note Note Day # 2 Subjective: Patient is without complaints. Ambulating, voiding. Tolerating a regular diet without nausea or vomiting. Normal lochia. Pain is well controlled with oral pain medications. Objective: Vital Sign - Last 24 Hours 11/05/17 11/05/17 11/05/17 11/05/17 09:00 12:45 16:50 20:50 Temp 98.8 97.8 98.4 97.8 Pulse 71 76 67 66 Resp 18 18 18 18 B/P (MAP) 105/68 (80) 104/64 (77) 116/75 (89) 103/69 (80) Pulse Ox 97 97 100 100 O2 Delivery Room Air Room Air Room Air Room Air 11/06/17 11/06/17 03:25 08:01 Temp 98.2 97.5 Pulse 69 71 Resp 18 16 B/P (MAP) 102/73 (83) 105/71 (82) Pulse Ox 97 98 O2 Delivery Room Air Room Air Intake and Output 11/05/17 11/05/17 11/06/17 15:00 23:00 07:00 Intake Total 2280 ml Output Total 1075 ml Balance 1205 ml Physical Exam: General - Alert and oriented, no apparent distress Abdomen - Soft, appropriately tender to palpation, non-distended, fundus firm at umbilicus Extremities - no edema, negative Adeline's bilaterally Incision- c/d/i Assessment: 1. post-operative day # 2, status post PLTCS. Recovering well, hemodynamically stable 2. Acute blood loss anemia Plan: Routine post-operative care. Encourage breast feeding. Encourage ambulation. VTE prophylaxis: SCDs. Ferrous sulfate supplementation. Discharge later today Vitals - Labs Vital Signs - I&O Vital Signs Date Time Temp Pulse Resp B/P (MAP) Pulse Ox O2 Delivery O2 Flow Rate FiO2 11/06/17 08:01 97.5 71 16 105/71 (82) 98 Room Air 11/06/17 03:25 98.2 69 18 102/73 (83) 97 Room Air 11/05/17 20:50 97.8 66 18 103/69 (80) 100 Room Air 11/05/17 16:50 98.4 67 18 116/75 (89) 100 Room Air 11/05/17 12:45 97.8 76 18 104/64 (77) 97 Room Air 11/05/17 09:00 98.8 71 18 105/68 (80) 97 Room Air I & O 11/06/17 07:00 Intake Total 2280 ml Output Total 1075 ml Balance 1205 ml JOHN SHEPARD DO Nov 06, 2017 08:55
--- NOTE | 2017-11-06 08:56 | Discharge Inst-Women's Service ---
Discharge Inst-Women's Serv Depart Medication/Instructions New, Converted or Re-Newed RX: RX on Chart Consults/Follow Up Additional Follow Up: Yes Orders/Referrals Dr. Anguiano in 7-[address] Bob in 6 weeks Activity Activity: Activity as Tolerated Driving Instructions: No Driving for 1 Week NO SMOKING: NO SMOKING Nothing Inside Vagina: No Douching, No [place], No Tampons Diet Discharge Diet: No Restrictions Symptoms to Report to : Bleeding Excessive, Pain Increased, Fever Over 101 Degrees F, Vaginal Bleeding Increase, Questions/Concerns For Any Problems or Questions: Contact Your Physician Skin/Wound Care Infection Signs and Symptoms: Increased Redness, Foul Odor of Wound, Increased Drainage, Skin Itchy or Has a Rash, Increased Swelling, Temperature Above 101 F Operative Area Clean and Dry: Keep Incision Clean/Dry Stitches/Spearman/Dermabond: Dermabond, Care of Stitches Bathing Instructions: JOHN Gibson DO Nov 06, 2017 08:56
[2017-11-06 14:00] VITALS: BP 128/75
[2017-11-06] MEDS: HYDROcodone/APAP 5 MG/325 MG (LORTAB) TAB PO PRN (21:28)
[2017-11-06] MEDS: VALACYCLOVIR 500 MG TAB (VALTREX) PO SCH (21:28)
[2017-11-06 21:30] VITALS: BP 112/74
[2017-11-07 03:35] VITALS: BP 102/65
[2017-11-07] MEDS: IBUPROFEN 600 MG (MOTRIN) TAB PO SCH ×2 (03:35→08:14)
[2017-11-07 08:10] VITALS: BP 111/74
[2017-11-07] MEDS: DOCUSATE SODIUM 100 MG (COLACE) CAP PO SCH (08:14)
[2017-11-07] MEDS: VALACYCLOVIR 500 MG TAB (VALTREX) PO SCH (08:14)
--- NOTE | 2017-11-07 11:54 | Postpartum Progress Note ---
Post Op Post-operative Day #3 s/p PLTCS restarted valtrex at patient request yesterday. First ever outbreak early in this and on Valtrex for prophylaxis. She wants to continue prophylaxis. doing well. No further nausea/emesis. tolerating pain medications. Subjective: Patient is without complaints. Ambulating, voiding after bland removed. Tolerating a regular diet without nausea or vomiting. Normal lochia. Pain is well controlled with oral pain medications. Passing flatus. breast feeding. Objective: 11/07/17 11/07/17 03:35 08:10 Temp 98.4 97.7 Pulse 65 71 Resp 18 18 B/P (MAP) 102/65 (77) 111/74 (86) Pulse Ox 98 98 O2 Delivery Room Air Room Air Physical Exam: General - Alert and oriented, no apparent distress Abdomen - Soft, appropriately tender to palpation, non-distended, fundus firm at umbilicus Incision - clean, dry and intact; no erythema or induration, no drainage Extremities - no edema, negative Adeline's bilaterally Assessment: 1. post-operative day # 3, status post PLTCS. Recovering well, hemodynamically stable 2. Acute blood loss anemia - stable on iron Plan: Routine post-operative care. Encourage breast feeding. Encourage ambulation. VTE prophylaxis: SCDs. Ferrous sulfate supplementation. Plan for discharge today (baby held yesterday due to growth) Patient plans to return to [place] with her mother. would recommend incision check in 1-2 weeks or if problems and then pp exam with her previous physician. Continue iron while . Ok to travel but recommend hydration, frequent mobilization during the drive back to [place]. Vitals - Labs Vital Signs - I&O Vital Signs Date Time Temp Pulse Resp B/P (MAP) Pulse Ox O2 Delivery O2 Flow Rate FiO2 11/07/17 08:10 97.7 71 18 111/74 (86) 98 Room Air 11/07/17 03:35 98.4 65 18 102/65 (77) 98 Room Air 11/06/17 21:30 98.0 63 18 112/74 (87) 99 Room Air 11/06/17 14:00 98.1 69 18 128/75 (92) 100 Room Air JOHN SAINI DO Nov 07, 2017 11:54
[2017-11-07] MEDS ORDERED: VALA500T4 PO (11:57)
[2017-11-07] MEDS ORDERED: FERR-84 PO (11:59)
--- NOTE | 2017-11-28 13:13 | Discharge Summary ---
Diagnosis/Chief Complaint Date of Admission Nov 04, 2017 at 04:38 Date of Discharge Nov 07, 2017 at 14:45 Admission Diagnosis Admission Diagnosis Rupture of Membranes Discharge Diagnosis Arrest of dilation Primary section Rupture of membranes Limited care Acute blood loss anemia history of HSV Chief Complaint/HPI Chief Complaint/HPI 20 /Para 5 / 0,Gestational Age 37 5/7 weeks with intolerance to labor, decelerations I was asked to consult by Dr. Elke Bob, due to decelerations. This is a 22 year old at 37 5/7 weeks with limited care in [place]. She had moved here to be with [employer] family and had [address] Fair[place]. Had ROM and arrived here at 0300. Was in spontaneous labor and approximately 4 cm dilated, but having deep variable late decelerations. The strip had improved, but Dr. Bob had asked me to consult due to decelerations. They had resolved but while I was in the room had a variable to 60 for over 2 minutes with slow recovery, so she was taken to the operating room for operative delivery. Discharge Summary-OBS Procedures None. Consultations 111/74 P - 74 T 97.7 Discharge Physical Examination Allergies: Coded Allergies: onion (Verified Allergy, Mild, 11/06/17) Uncoded Allergies: Chives (Allergy, Mild, 11/06/17) General Appearance: Alert, Oriented X3 Respiratory: Clear to Auscultation Cardiovascular: Regular Rate, Normal S1 Abdominal: Other (abdomen is soft and non tender. Incision clean, dry, intact) Hospital Course 20 /Para 5 / 0,Gestational Age 37 5/7 weeks with intolerance to labor, decelerations I was asked to consult by Dr. Elke Bob, due to decelerations. This is a 22 year old at 37 5/7 weeks with limited care in [place]. She had moved here to be with [employer] family and had [address] Fairbanks. Had ROM and arrived here at 0300. Was in spontaneous labor and approximately 4 cm dilated, but having deep variable late decelerations. The strip had improved, but Dr. Bob had asked me to consult due to decelerations. They had resolved but while I was in the room had a variable to 60 for over 2 minutes with slow recovery, so she was taken to the operating room for operative delivery. The patient was admitted to women's services after delivery. Pain management with Toradol and Dilaudid and then Motrin and Lortab. Her post operative course was routine. It was uncomplicated. Post operative hemoglobin 9.4. Iron was given orally. Discussion & Recommendations There was a social work consult due to family issues. PAtient was living in [place] but moved here during to be with a "friend", not the father of the baby. She does not have a primary residence in [place] and does not have a form of income. Her mother came from [place] to get her, so once she is released she will return home to [place] with her mother and the baby. Discharge Instructions to patient/family Please see electronic discharge instructions given to patient. Discharge Medications Reviewed and agree with Discharge Medication list on patient's Discharge Instruction sheet Clinical Quality Measures DVT/VTE Risk/Contraindication: Risk Factor Score Per Nursin RFS Level Per Nursing on Admit: 1=Low/No VTE PPX JOHN SAINI DO November 28, 2017 1:13 pm
== END 2017-11-07 14:45 | disposition home or self-care (01) | DRG 765 ==
LOC: WSo 03:28 → LDRP 03:29 → WSo 04:38 → LDRP 04:38
PROVIDERS: ADMIT Family Medicine; ATTEND Family Medicine
PROC: 10D00Z1 Extraction of Products of Conception, Low, Open Approach (ICD-10-PCS; principal; 2017-11-04 12:05)
DX: O99.324 Drug use complicating childbirth (principal); F12.10 Cannabis abuse, uncomplicated; O76 Abnormality in fetal heart rate and rhythm complicating labor and delivery; O98.52 Other viral diseases complicating childbirth; O90.81 Anemia of the puerperium; O26.833 Pregnancy related renal disease, third trimester; D62 Acute posthemorrhagic anemia; J45.909 Unspecified asthma, uncomplicated; O99.344 Other mental disorders complicating childbirth; F31.9 Bipolar disorder, unspecified; N18.9 Chronic kidney disease, unspecified; F60.3 Borderline personality disorder; O99.52 Diseases of the respiratory system complicating childbirth; O99.89 Other specified diseases and conditions complicating pregnancy, childbirth and the puerperium; Z3A.37 37 weeks gestation of pregnancy; Z37.0 Single live birth; Z23 Encounter for immunization
CPT/HCPCS: 36415; 76815; 80306; 85025; 86850; 86900; 86901; 88307; 90715; 94664; 99212; 99213

== ENCOUNTER 2019-05-10 12:40 | Emergency (ER) | payer SELFPAY ==
[~2019-05-10] VITALS: Ht 170.2 cm; Wt 62.7 kg
[~2019-05-10 12:40] MED LIST changes: +ACHD5005 PO; +FERR-84 PO; +IBUP-844 PO
--- NOTE | 2019-05-10 13:55 | Diagnostic Imaging Report ---
INDICATION: Pain COMPARISON: None available TECHNIQUE: 3 radiographs of the left knee dated 05/10/2019 FINDINGS: No acute fracture or dislocation. No destructive osseous process. Joint spaces are well-maintained. No joint effusion. No suspicious radiopaque foreign body. IMPRESSION: Unremarkable examination without acute osseous abnormality. Dictated by: Dictated on workstation # [id number]
--- NOTE | 2019-05-10 14:30 | ED Lower Extremity ---
General Chief Complaint: Lower Extremity Stated Complaint: LEFT KNEE PAIN/SWELLING Nursing Triage Note: Pt to triage via ED w/c by s/o with c/o lt knee discomfort and swelling. Pt reports on November 04, 2018, she tripped over a baby gate striking both knees. Pt reports approx 1-2wks ago she was seen @ [facility] where they imaged her Lt knee and told her she "cracked" her Lt kne cap. Pt reports continued pain and swelling to Lt knee. Mild swelling noted. Pt displays AROM to lt lower extremity. Nursing Sepsis Screen: No Definite Risk History of Present Illness Date Seen by Provider: May 10, 2019 Time Seen by Provider: 12:50 Initial Comments 24-year-old female seen for left knee pain. Injury occurred in October of this. No previous history of injuries to her left knee. Pain/Injury Location: left knee Method of Injury: fell Allergies and Home Medications Allergies Coded Allergies: onion (Verified Allergy, Mild, 11/06/17) Uncoded Allergies: Chives (Allergy, Mild, 11/06/17) Home Medications Ferrous Sulfate 325 Mg Tablet, 325 MG PO DAILY Prescribed by: JOHN SAINI on 11/07/17 1159 Hydrocodone Bit/Acetaminophen 1 Tab Tab, 1-2 TAB PO Q4H PRN for PAIN-MODERATE Prescribed by: JOHN SAINI on 11/04/17 1315 Ibuprofen 600 Mg Tablet, 600 MG PO Q6H Prescribed by: JOHN SAINI on 11/04/17 1315 Naproxen 500 Mg Tablet, 500 MG PO BID Prescribed by: ANAHY LAIRD on 05/10/19 1445 Valacyclovir HCl 500 Mg Tablet, 500 MG PO BID, (Reported) Valacyclovir HCl 500 Mg Tablet, 500 MG PO BID Prescribed by: JOHN SAINI on 11/07/17 1157 Patient Home Medication List Home Medication List Reviewed: Yes Review of Systems Constitutional: no symptoms reported, see HPI Musculoskeletal: see HPI, joint pain (left knee pain) All Other Systems Reviewed Negative Unless Noted: Yes Past Mjlmoax-Zufuol-Soehnj Hx Past Med/Social Hx: Reviewed Nursing Past Med/Soc Hx Patient Social History Alcohol Use: Past History Number of Drinks Today: 0 Recreational Drug Use: Yes (DRUG ABUSE ) Drug of Choice: THC Smoking Status: Current Everyday Smoker Type Used: Cigarettes Former Smoker, Quit: Feb 03, 2018 2nd Hand Smoke Exposure: Yes Recent Foreign Travel: No Contact w/Someone Who Travel: No Recent Infectious Disease Expo: No Recent Hopitalizations: No Immunizations Up To Date Tetanus Booster (TDap): Unknown PED Vaccines UTD: Yes Seasonal Allergies Seasonal Allergies: No Past Medical History Surgeries: Yes Section Respiratory: Yes Cardiac: No Neurological: No Female Reproductive Disorders: Denies Sexually Transmitted Disease: Yes (HSV) HIV/AIDS: No Genitourinary: No Gastrointestinal: No Musculoskeletal: No Endocrine: No HEENT: No Cancer: No Psychosocial: No Integumentary: No Blood Disorders: No Adverse Reaction/Blood Tranf: No Family Medical History Cervical cancer 19 MOTHER Physical Exam Vital Signs Vital Signs - First Documented 05/10/19 12:48 Temp 36.8 Pulse 85 Resp 17 B/P (MAP) 132/97 (109) Pulse Ox 98 O2 Delivery Room Air Capillary Refill : Less Than 3 Seconds Height, Weight, BMI Height: 4'8.00" Weight: 138lbs. 0.0oz. [id number]; 21.00 BMI Method: General Appearance: WD/WN, no apparent distress Cardiovascular: normal peripheral pulses, regular rate, rhythm Respiratory: chest non-tender, lungs clear Knees: left knee normal inspection, left knee normal range of motion, left knee no evidence of injury, left knee soft tissue tenderness (lateral), left knee swelling (trace), left knee other (negative Lockman, negative anterior posterior drawer. Pain with Leydi.) Neurologic/Psychiatric: no motor/sensory deficits, alert, normal mood/affect, oriented x 3 Skin: normal color, warm/dry Progress/Results/Core Measures Results/Orders My Orders Orders - ANAHY LAIRD Urine Bedside (05/10/19 13:13) Knee, Left, 3 Views (05/10/19 13:13) Vital Signs/I&O 05/10/19 05/10/19 12:48 14:54 Temp 36.8 36.8 Pulse 85 75 Resp 17 17 B/P (MAP) 132/97 (109) 132/97 (109) Pulse Ox 98 99 O2 Delivery Room Air Room Air Blood Pressure Mean: 109 POS Diagnostic Imaging Diagonstic Imaging: Xray Plain Films/CT/US/NM/MRI: knee Comments NAME: ESTEBAN CARSON [facility] REC#: [id number] PT STATUS: REG ER : 1995 PHYSICIAN: ANAHY LAIRD ADMIT DATE: 05/10/19/ER Draft POSDate of Exam:05/10/19 KNEE, LEFT, 3 VIEWS INDICATION: Pain COMPARISON: None available TECHNIQUE: 3 radiographs of the left knee dated 05/10/2019 FINDINGS: No acute fracture or dislocation. No destructive osseous process. Joint spaces are well-maintained. No joint effusion. No suspicious radiopaque foreign body. IMPRESSION: Unremarkable examination without acute osseous abnormality. Dictated on workstation # [id number] Dict: 05/10/19 1353 Trans: 05/10/19 1355 [facility] [id number] Interpreted by: JARON VERNON MD Electronically signed by: Reviewed: Reviewed by Me Departure Impression Primary Impression: Left anterior knee pain Disposition: HOME, SELF-CARE Condition: Improved Departure-Patient Inst. Decision time for Depature: 14:30 Referrals: RUBEN MUNOZ MD (PCP/Family) Primary Care Physician Patient Instructions: Knee Pain (DC) Add. Discharge Instructions: Alternate heat and ice to knee as tolerated. Follow-up at [facility] for consideration of an MRI or referral to orthopedics. Take naproxen 1 tablet twice daily with food. Do not take any additional NSAIDs: Ibuprofen, Advil or Aleve. You may take Tylenol 650 mg every 8 hours as needed for additional pain relief. Continue to use the Ton wrap or get a knee sleeve. Return to emergency department for new, urgent care problems. All discharge instructions reviewed with patient and/or family. Voiced understanding. Scripts Naproxen (Naprosyn) 500 Mg Tablet 500 MG PO BID, #30 TAB 1 Refill Prov: ANAHY LAIRD 05/10/19 ANAHY LAIRD May 10, 2019 14:30 POS
[2019-05-10] MEDS ORDERED: NAPR-1071 PO (14:45)
[2019-05-10 14:54] VITALS: BP 132/97
== END 2019-05-10 14:55 | disposition home or self-care (01) ==
LOC: EDUNIT# 12:40 → ER 12:42
DX: M25.562 Pain in left knee (principal); F17.210 Nicotine dependence, cigarettes, uncomplicated; Z85.41 Personal history of malignant neoplasm of cervix uteri; W01.198A Fall on same level from slipping, tripping and stumbling with subsequent striking against other object, initial encounter
CPT/HCPCS: 73562; 84703

== ENCOUNTER 2019-05-31 18:12 | Emergency (ER) | payer SELFPAY ==
[~2019-05-31] VITALS: Ht 140 cm; Wt 57.0 kg
[~2019-05-31 18:12] MED LIST changes: +NAPR-1071 PO
[2019-05-31] MEDS ORDERED: ORPHENADRINE 60 MG/2 ML (NORFLEX) AMP IV STA (18:32)
[2019-05-31] MEDS ORDERED: fentaNYL INJECTION 100 MCG/2 ML AMP IVP STA (18:32)
[2019-05-31 18:40] LABS: BASOPHILS # (AUTO) 0.1 10^3/uL (0.0-0.1); BASOPHILS % (AUTO) 1 % (0-10); EOSINOPHILS # (AUTO) 0.1 10^3/uL (0.0-0.3); EOSINOPHILS % (AUTO) 1 % (0-10); HEMATOCRIT 46 % (35-52); LYMPHOCYTES # (AUTO) 2.2 X 10^3 (1.0-4.0); LYMPHOCYTES % (AUTO) 33 % (12-44); MEAN CORPUSCULAR HEMOGLOBIN 29 PG (25-34); MEAN CORPUSCULAR HGB CONC 33 G/DL (32-36); MEAN CORPUSCULAR VOLUME 90 FL (80-99); MEAN PLATELET VOLUME 9.4 FL (7.4-10.4); MONOCYTES # (AUTO) 0.5 X 10^3 (0.0-1.0); MONOCYTES % (AUTO) 8 % (0-12); NEUTROPHILS # (AUTO) 3.7 X 10^3 (1.8-7.8); NEUTROPHILS % (AUTO) 57 % (42-75); PLATELET COUNT 322 10^3/uL (130-400); RED CELL DISTRIBUTION WIDTH 13.8 % (10.0-14.5); WHITE BLOOD COUNT 6.6 10^3/uL (4.3-11.0)
[2019-05-31 18:59] LABS: ALANINE AMINOTRANSFERASE 15 U/L (0-55); ALBUMIN 4.4 GM/DL (3.2-4.5); ALKALINE PHOSPHATASE 54 U/L (40-136); BILIRUBIN,TOTAL 0.6 MG/DL (0.1-1.0); BUN/CREATININE RATIO 11; CALCIUM 9.6 MG/DL (8.5-10.1); CARBON DIOXIDE 25 MMOL/L (21-32); CHLORIDE 103 MMOL/L (98-107); CREATININE SERUM 0.75 MG/DL (0.60-1.30); GFR ESTIMATED > 60; GLUCOSE 83 MG/DL (70-105); POTASSIUM 3.1 MMOL/L (3.6-5.0); SODIUM 139 MMOL/L (135-145); TOTAL PROTEIN 7.6 GM/DL (6.4-8.2)
--- NOTE | 2019-05-31 19:00 | ED Fall/Injury ---
General Chief Complaint: Upper Extremity Stated Complaint: L SIDED PAIN Nursing Triage Note: pt presents to ed with complaints of l shoulder/arm pain since tripping over baby toys at home yesterday. Source: patient Exam Limitations: no limitations History of Present Illness Date Seen by Provider: May 31, 2019 Time Seen by Provider: 18:25 Initial Comments Here with report of left-sided neck pain facial pain as well as shoulder pain and left rib pain. Patient apparently fell yesterday while trying to get something out of a baby walker. She fell over onto her left ribs on the baby walker and then fell to the ground and hit her left shoulder and then her face. She was doing okay until today when she noted that she started having pulling sensation on her left shoulder and swelling. Started having pain in the ribs and left face that worsened with all of this and notes spasms of the neck and shoulder muscles on the left. [place] some tingling on her face with all of this and ultimately called EMS. Arise with left shoulder significantly elevated and difficulty with turning had poor lowering the shoulder due to spasms. She did take 2 ibuprofen this morning for pain. She has not taken anything else. 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 Occurred: yesterday Severity: moderate Injuries/Pain Location: face, neck, upper extremity, chest Context: lost balance Loss of Consciousness: no loss of consciousness Modifying Factors: Improves With Immobilization; Worse With Movement Associated Symptoms (Fall): No Chest Pain, No Confusion, No Dizziness; Muscle Spasms; No Nausea/Vomiting; Neck Pain Allergies and Home Medications Allergies Coded Allergies: onion (Verified Allergy, Mild, 11/06/17) Uncoded Allergies: Chives (Allergy, Mild, 11/06/17) Home Medications Ferrous Sulfate 325 Mg Tablet, 325 MG PO DAILY Prescribed by: JOHN SAINI on 11/07/17 1159 Hydrocodone Bit/Acetaminophen 1 Tab Tab, 1-2 TAB PO Q4H PRN for PAIN-MODERATE Prescribed by: JOHN SAINI on 11/04/17 1315 Ibuprofen 600 Mg Tablet, 600 MG PO Q6H Prescribed by: JOHN SAINI on 11/04/17 1315 Naproxen 500 Mg Tablet, 500 MG PO BID Prescribed by: ANAHY LAIRD on 05/10/19 1445 Valacyclovir HCl 500 Mg Tablet, 500 MG PO BID, (Reported) Valacyclovir HCl 500 Mg Tablet, 500 MG PO BID Prescribed by: JOHN SAINI on 11/07/17 1157 Patient Home Medication List Home Medication List Reviewed: Yes Review of Systems Review of Systems Constitutional: see HPI; No fever Eyes: No Symptoms Reported Ears, Nose, Mouth, Throat: see HPI, mouth pain Respiratory: No cough, No short of breath Cardiovascular: chest pain (left lateral); No edema Gastrointestinal: No abdominal pain, No nausea, No vomiting Genitourinary: no symptoms reported Musculoskeletal: see HPI, joint pain, muscle pain, muscle stiffness, neck pain Skin: no symptoms reported All Other Systems Reviewed Negative Unless Noted: Yes Past Qcooybp-Wetglz-Blagpy Hx Past Med/Social Hx: Reviewed Nursing Past Med/Soc Hx Patient Social History Alcohol Use: Rarely Uses Recreational Drug Use: Yes (marijuana) Drug of Choice: THC Smoking Status: Current Everyday Smoker Type Used: Cigarettes Former Smoker, Quit: Feb 03, 2018 2nd Hand Smoke Exposure: Yes Recent Foreign Travel: No Contact w/Someone Who Travel: No Recent Infectious Disease Expo: No Recent Hopitalizations: No Physical Abuse: No Sexual Abuse: No Mistreated: No Fear: No Immunizations Up To Date Tetanus Booster (TDap): Unknown PED Vaccines UTD: Yes Seasonal Allergies Seasonal Allergies: No Past Medical History Surgeries: Yes Section Respiratory: Yes Cardiac: No Neurological: No Female Reproductive Disorders: Denies Sexually Transmitted Disease: Yes (HSV) HIV/AIDS: No Genitourinary: Yes ("one kidney does not work") Gastrointestinal: No Musculoskeletal: No Endocrine: No HEENT: No Cancer: No Psychosocial: No (mood disorder) Bipolar Integumentary: No Blood Disorders: No Adverse Reaction/Blood Tranf: No Family Medical History Reviewed Nursing Family Hx Cervical cancer 19 MOTHER No Pertinent Family Hx Physical Exam Vital Signs Vital Signs - First Documented 05/31/19 18:16 Temp 36.2 Pulse 113 Resp 16 B/P (MAP) 147/98 (114) Pulse Ox 99 Capillary Refill : Less Than 3 Seconds Height, Weight, BMI Height: 4'8.00" Weight: 138lbs. 0.0oz. [id number]; 29.00 BMI Method: General Appearance: WD/WN, no apparent distress Neck: limited range of motion (muscle spasm on the left), tender lateral; No tender midline Cardiovascular: no murmur, tachycardia Respiratory: lungs clear, normal breath sounds Gastrointestinal: non tender, soft Back: normal inspection, no CVA tenderness, no vertebral tenderness Extremities: pelvis stable, other (shoulder with spasm noted to the trapezius from the shoulder joint to the occiput. Shoulder in elevated position. 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 full property investor strength, sensation and movement of the left hand.) Neurologic/Psychiatric: alert, oriented x 3 Skin: normal color, warm/dry [place] Coma Score Best Eye Response: (4) Open Spontaneously Best Verbal Response: (5) Oriented Best Motor Response: (6) Obeys Commands Progress/Results/Core Measures Results/Orders Lab Results Laboratory Tests Test 05/31/19 18:30 Range/Units White Blood Count 6.6 4.3-11.0 10^3/uL Red Blood Count 5.11 4.35-5.85 10^6/uL Hemoglobin 15.0 11.5-16.0 G/DL Hematocrit 46 35-52 % Mean Corpuscular Volume 90 80-99 FL Mean Corpuscular Hemoglobin 29 25-34 PG Mean Corpuscular Hemoglobin Concent 33 32-36 G/DL Red Cell Distribution Width 13.8 10.0-14.5 % Platelet Count 322 130-400 10^3/uL Mean Platelet Volume 9.4 7.4-10.4 FL Neutrophils (%) (Auto) 57 42-75 % Lymphocytes (%) (Auto) 33 12-44 % Monocytes (%) (Auto) 8 0-12 % Eosinophils (%) (Auto) 1 0-10 % Basophils (%) (Auto) 1 0-10 % Neutrophils # (Auto) 3.7 1.8-7.8 X 10^3 Lymphocytes # (Auto) 2.2 1.0-4.0 X 10^3 Monocytes # (Auto) 0.5 0.0-1.0 X 10^3 Eosinophils # (Auto) 0.1 0.0-0.3 10^3/uL Basophils # (Auto) 0.1 0.0-0.1 10^3/uL Sodium Level 139 135-145 MMOL/L Potassium Level 3.1 L 3.6-5.0 MMOL/L Chloride Level 103 98-107 MMOL/L Carbon Dioxide Level 25 21-32 MMOL/L Anion Gap 11 5-14 MMOL/L Blood Urea Nitrogen 8 7-18 MG/DL Creatinine 0.75 0.60-1.30 MG/DL Estimat Glomerular Filtration Rate > 60 BUN/Creatinine Ratio 11 Glucose Level 83 70-105 MG/DL Calcium Level 9.6 8.5-10.1 MG/DL Corrected Calcium 9.3 8.5-10.1 MG/DL Total Bilirubin 0.6 0.1-1.0 MG/DL Aspartate Amino Transf (AST/SGOT) 12 5-34 U/L Alanine Aminotransferase (ALT/SGPT) 15 0-55 U/L Alkaline Phosphatase 54 40-136 U/L Total Protein 7.6 6.4-8.2 GM/DL Albumin 4.4 3.2-4.5 GM/DL Serum Test, Qualitative NEGATIVE NEGATIVE My Orders Orders - XI COKER MD Cbc With Automated Diff (05/31/19 18:32) Comprehensive Metabolic Panel (05/31/19 18:32) Hcg,Qualitative Serum (05/31/19 18:32) Ed Iv/Invasive Line Start (05/31/19 18:32) Fentanyl Injection (Sublimaze Injection (05/31/19 18:32) Orphenadrine Injection (Norflex Injectio (05/31/19 18:32) Ct Head/Cervical Spine Wo (05/31/19 18:47) Chest 1 View, Ap/Pa Only (05/31/19 18:47) Shoulder, Left, 3 Views (05/31/19 18:47) Vital Signs/I&O 05/31/19 18:16 Temp 36.2 Pulse 113 Resp 16 B/P (MAP) 147/98 (114) Pulse Ox 99 Blood Pressure Mean: 114 POS Progress Progress Note : Progress Note Seen and evaluated on arrival by EMS. IV, labs, fentanyl 50 g IV, Norflex 60 mg IV, CT head and neck ordered as well as left shoulder x-ray and chest x-ray. Monitor patient. 1905: Patient states she is hungry and hasn't eaten today and would like to get something to eat. She also states that she is currently unable to get a ride until midnight. We will address those issues when radiology is complete. 2009: Overall much better now. OMM performed by student with excellent results. Has great range of motion to the neck currently without significant pain. Discharge home with return precautions. Patient verbalize understanding instructions and agreement with plan. Diagnostic Imaging Diagonstic Imaging: CT Plain Films/CT/US/NM/MRI: c-spine, head Comments NAME: ESTEBAN CARSON [facility] REC#: [id number] PT STATUS: REG ER : 1995 PHYSICIAN: XI COKER MD ADMIT DATE: 05/31/19/ER Draft POSDate of Exam:05/31/19 CT HEAD/CERVICAL SPINE WO PROCEDURE: CT head and CT cervical spine without contrast. TECHNIQUE: Multiple contiguous axial images were obtained through the brain and cervical spine without the use of intravenous contrast. Sagittal and coronal reformations through the cervical spine were then performed. Auto Exposure Controls were utilized during the CT exam to meet ALARA standards for radiation dose reduction. INDICATION: One day post fall, landed on left side, headache and posterior neck pain. CORRELATION STUDY: None FINDINGS: CT HEAD: Ventricles and sulci are age-appropriate. Normal desai-white differentiation. No abnormal areas of decreased attenuation to suggest edema. No midline shift or mass effect. No intracranial hemorrhage. Basilar cisterns appear maintained. CT CERVICAL SPINE: Straightening of the normal cervical lordosis. Alignment otherwise relatively anatomic. Vertebral body heights are maintained. The posterior elements intact and in normal alignment. Odontoid intact. The intervertebral disc spaces overall appear to be fairly well-maintained. There is rather prominent in number bilateral cervical lymph nodes. Lung apices unremarkable. IMPRESSION: CT HEAD: 1. Negative for acute traumatic intracranial abnormality. CT CERVICAL SPINE: 1. Negative for acute fracture or traumatic subluxation. Dictated on workstation # [id number] Dict: 05/31/191936 Trans: 05/31/[address] [place] [address] [id number] Interpreted by: NIRMAL ROSE DO Electronically signed by: Diagonstic Imaging: Xray Plain Films/CT/US/NM/MRI: chest Comments [facility]. POS [place], [place] POS NAME: ESTEBAN CARSON [facility] REC#: [id number] PT STATUS: REG ER : 1995 PHYSICIAN: XI COKER MD ADMIT DATE: 05/31/19/ER Draft POSDate of Exam:05/31/19 CHEST 1 VIEW, AP/PA ONLY INDICATION: Status post fall yesterday, landed on left side, pain. TECHNIQUE: Single view chest 7:35 PM. CORRELATION STUDY: None FINDINGS: The heart size, mediastinal configuration and pulmonary vascularity are within normal limits. The lungs are clear with no consolidating infiltrate. There is no significant effusion or pneumothorax. IMPRESSION: 1. Negative for acute traumatic abnormality of the chest. Dictated on workstation # [id number] Dict: 05/31/191939 Trans: 05/31/191940 DO [id number] Interpreted by: NIRMAL ROSE DO Electronically signed by: [email or web address] Imaging: Xray Plain Films/CT/US/NM/MRI: other Comments [facility]. POS [place], [place] POS NAME: ESTEBAN CARSON [facility] REC#: [id number] PT STATUS: REG ER : 1995 PHYSICIAN: XI COKER MD ADMIT DATE: 05/31/19/ER Draft POSDate of Exam:05/31/19 SHOULDER, LEFT, 3 VIEWS INDICATION: One day post fall, pain TECHNIQUE: Three views of the left shoulder CORRELATION STUDY: None FINDINGS: The glenohumeral and acromioclavicular alignment are maintained and unremarkable. There is no evidence for acute fracture or dislocation. The visualized soft tissues are unremarkable. IMPRESSION: 1. Negative for acute bony abnormality about the shoulder. Dictated on workstation # [id number] Dict: 05/31/191940 Trans: 05/31/191940 DO [id number] Interpreted by: NIRMAL ROSE DO Electronically signed by: Departure Impression Primary Impression: Cervical muscle strain Qualified Codes: S16.1XXA - Strain of muscle, fascia and tendon at neck level, initial encounter Additional Impressions: Contusion of left chest wall Qualified Codes: S20.212A - Contusion of left front wall of thorax, initial encounter Left shoulder pain Qualified Codes: M25.512 - Pain in left shoulder Disposition: 01 HOME, SELF-CARE Condition: Improved Departure-Patient Inst. Decision time for Depature: 20:16 Referrals: NO,LOCAL PHYSICIAN (PCP/Family) Primary Care Physician Patient Instructions: Contusion (DC), Cervical Muscle Strain (DC), Shoulder Pain (DC) Add. Discharge Instructions: All discharge instructions reviewed with patient and/or family. Voiced understanding. You may take Tylenol/acetaminophen 1000 mg every 8 hours as needed for pain and may go down to 6 hours if needed. Do not exceed 4000 mg of acetaminophen and 24 hours and try to stick more to the every 8 hour dosing. Limit ibuprofen due to your kidney problems. Do not take more than 2 tablets that time. Drink plenty of fluids. Use stretching exercises given. Follow up with your doctor for recheck and further evaluation. Return for worse pain, weakness, numbness, breathing problems or other concerns as needed. Scripts Cyclobenzaprine HCl (Cyclobenzaprine HCl) 10 Mg Tablet 10 MG PO Q8H PRN for SPASMS, #12 TAB 0 Refills Prov: XI COKER MD 05/31/19 XI COKER MD May 31, 2019 19:00 POS
--- NOTE | 2019-05-31 19:00 | NUR ---
report to cuba saldivar at this time. care turned over
--- NOTE | 2019-05-31 19:41 | Diagnostic Imaging Report ---
INDICATION: Status post fall yesterday, landed on left side, pain. TECHNIQUE: Single view chest 7:35 PM. CORRELATION STUDY: None FINDINGS: The heart size, mediastinal configuration and pulmonary vascularity are within normal limits. The lungs are clear with no consolidating infiltrate. There is no significant effusion or pneumothorax. IMPRESSION: 1. Negative for acute traumatic abnormality of the chest. Dictated by: Dictated on workstation # [id number]
--- NOTE | 2019-05-31 19:42 | Diagnostic Imaging Report ---
INDICATION: One day post fall, pain TECHNIQUE: Three views of the left shoulder CORRELATION STUDY: None FINDINGS: The glenohumeral and acromioclavicular alignment are maintained and unremarkable. There is no evidence for acute fracture or dislocation. The visualized soft tissues are unremarkable. IMPRESSION: 1. Negative for acute bony abnormality about the shoulder. Dictated by: Dictated on workstation # [id number]
--- NOTE | 2019-05-31 19:50 | Diagnostic Imaging Report ---
PROCEDURE: CT head and CT cervical spine without contrast. TECHNIQUE: Multiple contiguous axial images were obtained through the brain and cervical spine without the use of intravenous contrast. Sagittal and coronal reformations through the cervical spine were then performed. Auto Exposure Controls were utilized during the CT exam to meet ALARA standards for radiation dose reduction. INDICATION: One day post fall, landed on left side, headache and posterior neck pain. CORRELATION STUDY: None FINDINGS: CT HEAD: Ventricles and sulci are age-appropriate. Normal desai-white differentiation. No abnormal areas of decreased attenuation to suggest edema. No midline shift or mass effect. No intracranial hemorrhage. Basilar cisterns appear maintained. CT CERVICAL SPINE: Straightening of the normal cervical lordosis. Alignment otherwise relatively anatomic. Vertebral body heights are maintained. The posterior elements intact and in normal alignment. Odontoid intact. The intervertebral disc spaces overall appear to be fairly well-maintained. There is rather prominent in number bilateral cervical lymph nodes. Lung apices unremarkable. IMPRESSION: CT HEAD: 1. Negative for acute traumatic intracranial abnormality. CT CERVICAL SPINE: 1. Negative for acute fracture or traumatic subluxation. Dictated by: Dictated on workstation # [id number]
[2019-05-31] MEDS ORDERED: CYCL10TA9 PO (20:18)
[2019-05-31 20:24] VITALS: BP 132/80
== END 2019-05-31 20:24 | disposition home or self-care (01) ==
LOC: EDUNIT# 18:12 → ER 18:13
DX: S16.1XXA Strain of muscle, fascia and tendon at neck level, initial encounter (principal); S20.212A Contusion of left front wall of thorax, initial encounter; M25.512 Pain in left shoulder; F31.9 Bipolar disorder, unspecified; F17.210 Nicotine dependence, cigarettes, uncomplicated; Z80.49 Family history of malignant neoplasm of other genital organs; W01.198A Fall on same level from slipping, tripping and stumbling with subsequent striking against other object, initial encounter; Y92.009 Unspecified place in unspecified non-institutional (private) residence as the place of occurrence of the external cause
CPT/HCPCS: 36415; 70450; 71045; 72125; 73030; 80053; 84703; 85025